=== PATIENT | male | born 1970 | race Caucasian/White ===

== ENCOUNTER 2017-01-19 13:39 | Emergency (ER) | payer BC, OTHER ==
--- NOTE | 2017-01-19 14:22 | EDM.PDOC ---
ED HPI Trauma - General Chief Complaint: Lower Extremity Injury/Pain Stated Complaint: KNEE Time Seen by Provider: 01/19/17 14:00 Source: Reports: Patient History Limitations: Reports: No limitations - History of Present Illness INITIAL COMMENTS - FREE TEXT/NARRATIVE: HISTORY AND PHYSICAL: History of present illness: [Patient comes to the emergency room complaining of right knee pain. States that he slipped on some ice and fell, landing on his buttocks while at work approximately 4 weeks ago. Has been experiencing right posterior knee pain since that fall. He notices increased pain with bending his right knee such as when he squats to rock picker his young daughter. He had one episode of hearing a popping sound since the fall. Has had some mild swelling at times. Tends to come and go. He's taken Tylenol and ibuprofen very occasionally and has not taken any medications regularly. No Weakness, numbness or tingling.] Review of systems: As per history of present illness and below otherwise all systems reviewed and negative. Past medical history: As per history of present illness and as reviewed below otherwise noncontributory. Surgical history: As per history of present illness and as reviewed below otherwise noncontributory. Social history: No reported history of drug or alcohol abuse. Family history: As per history of present illness and as reviewed below otherwise noncontributory. Physical exam: HEENT: Atraumatic, normocephalic. Extremities: Right knee is atraumatic in appearance. Mild swelling present to right posterior knee. Left knee is atraumatic. Negative anterior and posterior drawer. No joint instability is appreciated. negative for cords or calf pain. Neurovascular unremarkable. Neuro: Awake, alert, oriented. Motor and sensory unremarkable throughout. Exam nonfocal. Diagnostics: [R knee x-ray] Impression: [Right knee pain] Plan: [Encouraged patient to take ibuprofen alternating with Tylenol and to establish care with a local primary care provider. He is in agreement with today's plan. All questions are answered and concerns are addressed the] Definitive disposition and diagnosis as appropriate pending reevaluation and review of above. Allergies/ADRs: Allergies erythromycin base [Erythromycin Base] Allergy (Verified 01/19/17 14:07) Confusion Home Medications: Ambulatory Orders . [No Known Home Meds] 01/19/17 [Confirmed 01/19/17] Past Medical History - Past Health History Medical/Surgical History: Denies Medical/Surgical History - Infectious Disease History Infectious Disease History: Reports: Chicken pox Social & Family History - Family History Family Medical History: Noncontributory - Tobacco Use Smoking Status *Q: Never Smoker Second Hand Smoke Exposure: No - Caffeine Use Caffeine Use: Reports: Coffee, Soda - Alcohol Use Days Per Week of Alcohol Use: 0 - Recreational Drug Use Recreational Drug Use: No Review of Systems - Review of Systems Review Of Systems: ROS reveals no pertinent complaints other than HPI. Trauma Exam - Physical Exam Exam: See Below Course - Vital Signs Last Recorded V/S: Last Vital Signs Temp 97.5 F 01/19/17 15:35 Pulse 68 01/19/17 15:35 Resp 16 01/19/17 15:35 BP 147/64 H 01/19/17 15:35 Pulse Ox 93 L 01/19/17 15:35 Departure - Departure Time of Disposition: 15:25 Disposition: Home, Self-Care 01 Condition: good Clinical Impression: Right knee pain Qualifiers: Chronicity: acute Qualified Code(s): M25.561 - Pain in right knee Instructions: Knee Pain Referrals: PCP,None [Primary Care Provider] - Forms: ED Department Discharge Additional Instructions: The following information is given to patients seen in the emergency department who are being discharged to home. This information is to outline your options for follow-up care. We provide all patients seen in our emergency department with a follow-up referral. The need for follow-up, as well as the timing and circumstances, are variable depending upon the specifics of your emergency department visit. If you don't have a primary care physician on staff, we will provide you with a referral. We always advise you to contact your personal physician following an emergency department visit to inform them of the circumstance of the visit and for follow-up with them and/or the need for any referrals to a consulting specialist. The emergency department will also refer you to a specialist when appropriate. This referral assures that you have the opportunity for follow-up care with a specialist. All of these measure are taken in an effort to provide you with optimal care, which includes your follow-up. Under all circumstances we always encourage you to contact your private physician who remains a resource for coordinating your care. When calling for follow-up care, please make the office aware that this follow-up is from your recent emergency room visit. If for any reason you are refused follow-up, please contact the [facility] emergency department at and asked to speak to the emergency department charge nurse. [facility] [address] [place] [id number] Ibuprofen 200 mg 3 tabs every 6 hours with food. Alternate with Tylenol 2 tabs every 4-6 hours as needed for pain. Recommend followup with a local primary care provider at the clinic listed above to determine if orthopedic followup is indicated. Return to ER as needed and as we discussed.
--- NOTE | 2017-01-19 15:14 | CR ---
EXAMINATION: Pain knee HISTORY: Pain COMPARISON: None TECHNIQUE: 3 views FINDINGS/IMPRESSION: There is no acute osseous abnormality, dislocation, or fracture identified. Bon e mineralization and joint spaces appear normal. Mild prepatellar soft tissue thickening.
[2017-01-19 16:04] VITALS: BP 147/64
== END 2017-01-19 15:35 | disposition home or self-care (01) ==
LOC: MW.ED 13:39
DX: M25.561 Pain in right knee (principal); Z88.6 Allergy status to analgesic agent
CPT/HCPCS: 73562-26-RT; 73562-RT; 99282; 99283